=== PATIENT | male | born 1975 | race Caucasian/White ===

== ENCOUNTER 2018-07-04 15:39 | Inpatient (IN) | payer MEDICAID ==
[2018-07-04 16:14] LABS: ADD MAN DIFF? NO
[2018-07-04 16:19] LABS: BASO % 1 % (0-3); EOS # 0.1 x10^3/uL (0.0-0.7); EOS % 1 % (0-3); LYMPH # 2.4 x10^3/uL (1.0-4.8); LYMPH % 30 % (24-48); MEAN CORPUSCULAR HEMOGLOBIN 33 pg (25-35); MEAN CORPUSCULAR HGB CONC 34 g/dL (31-37); MEAN CORPUSCULAR VOLUME 95 fL (79-100); MONO # 0.6 x10^3/uL (0.0-1.1); MONO % 8 % (0-9); NEUT # 4.9 x10^3uL (1.8-7.7); NEUT % 61 % (31-73); PLATELET COUNT 227 x10^3/uL (140-400); RED BLOOD COUNT 4.93 x10^6/uL (4.30-5.70); RED CELL DISTRIBUTION WIDTH 13.8 % (11.5-14.5)
[2018-07-04 16:24] LABS: BILIRUBIN,URINE NEGATIVE (NEG); CLARITY,URINE CLEAR; COLOR,URINE YELLOW; GLUCOSE,URINE NEGATIVE (NEG); NITRITE,URINE NEGATIVE (NEG); PH,URINE 6.5; PROTEIN,URINE NEGATIVE (NEG-TRACE)
[2018-07-04 16:30] LABS: AMPHETAMINE/METHAMPHETAMINE NEG (NEG); BARBITURATES NEG (NEG); BENZODIAZEPINES NEG (NEG); CANNABINOIDS POS (NEG); COCAINE NEG (NEG); ETHANOL, URINE POS (NEG); METHADONE NEG (NEG); OPIATES NEG (NEG); PHENCYCLIDINE NEG (NEG)
[2018-07-04 16:31] LABS: ANION GAP 12 (6-14); BACTERIA,URINE 0 /HPF (0-FEW); BLOOD UREA NITROGEN 10 mg/dL (8-26); BUN/CREATININE RATIO 13 (6-20); CALCIUM 9.2 mg/dL (8.5-10.1); CARBON DIOXIDE 25 mmol/L (21-32); CHLORIDE 103 mmol/L (98-107); CREATININE 0.8 mg/dL (0.7-1.3); GLUCOSE 112 mg/dL (70-99); RBC,URINE 0 /HPF (0-2); SODIUM 140 mmol/L (136-145); WBC,URINE OCC /HPF (0-4)
[2018-07-04] MEDS: MULTIVIT INFUSN,ADULT 4,VIT K 10 ML, THIAMINE 100 MG, FOLIC ACID 1 MG in IV NORMAL SALI... IV ×2 (16:32→20:27)
[2018-07-04] MEDS: ONDANSETRON PF 4 MG/2 ML VIAL. IV (16:32)
[2018-07-04 16:36] LABS: ALBUMIN 4.1 g/dL (3.4-5.0); ALBUMIN/GLOBULIN RATIO 1.3 (1.0-1.7); ALK PHOS 52 U/L (46-116); ALT (SGPT) 42 U/L (16-63); AST (SGOT) 28 U/L (15-37); LIPASE 228 U/L (73-393); TOTAL BILIRUBIN 0.4 mg/dL (0.2-1.0); TOTAL PROTEIN 7.3 g/dL (6.4-8.2)
[2018-07-04 16:38] LABS: ETHANOL 218 mg/dL (0-10); SALIC 4.7 mg/dL (2.8-20.0)
[2018-07-04 16:39] LABS: ACETAMIN < 2 mcg/ml (10-30)
[2018-07-04] MEDS ORDERED: LORazepam 1 MG TABLET PO (17:45)
[2018-07-04] MEDS ORDERED: HALOPERIDOL LACTATE 5 MG/ML VIAL. IVP (17:45)
[2018-07-04] MEDS ORDERED: ACETAMINOPHEN 325 MG TABLET. PO (17:45)
[2018-07-04] MEDS: ENOXAPARIN 40 MG/0.4 ML SYRINGE. SQ (17:45)
[2018-07-04] MEDS ORDERED: diphenhydrAMINE 50 MG/ML VIAL IVP (17:45)
[2018-07-04] MEDS: IV NORMAL SALINE 1000ML BAG 1,000 ML IV (17:45)
[2018-07-04] MEDS ORDERED: cloNIDine HCL 0.1 MG TABLET PO (17:45)
[2018-07-04] MEDS ORDERED: ONDANSETRON PF 4 MG/2 ML VIAL. IV (17:45)
[2018-07-04] MEDS: PANTOPRAZOLE IV PUSH 40 MG VIAL. IVP (20:28)
[2018-07-04] MEDS: NICOTINE 21MG PATCH. TD (21:38)
[2018-07-05] MEDS: MULTIVIT INFUSN,ADULT 4,VIT K 10 ML, THIAMINE 100 MG, FOLIC ACID 1 MG in IV NORMAL SALI... IV (08:49)
[2018-07-05 09:04] LABS: ADD MAN DIFF? NO
[2018-07-05 09:17] LABS: BASO % 1 % (0-3); EOS # 0.1 x10^3/uL (0.0-0.7); EOS % 2 % (0-3); HEMOGLOBIN 15.5 g/dL (13.0-17.5); LYMPH # 1.6 x10^3/uL (1.0-4.8); LYMPH % 25 % (24-48); MEAN CORPUSCULAR HEMOGLOBIN 32 pg (25-35); MEAN CORPUSCULAR HGB CONC 34 g/dL (31-37); MEAN CORPUSCULAR VOLUME 95 fL (79-100); MONO # 0.6 x10^3/uL (0.0-1.1); MONO % 9 % (0-9); NEUT # 4.2 x10^3uL (1.8-7.7); NEUT % 64 % (31-73); PLATELET COUNT 201 x10^3/uL (140-400); RED BLOOD COUNT 4.82 x10^6/uL (4.30-5.70); RED CELL DISTRIBUTION WIDTH 13.9 % (11.5-14.5); WHITE BLOOD COUNT 6.5 x10^3/uL (4.0-11.0)
[2018-07-05 09:21] LABS: ALBUMIN 3.9 g/dL (3.4-5.0); ALBUMIN/GLOBULIN RATIO 1.6 (1.0-1.7); ALK PHOS 51 U/L (46-116); ALT (SGPT) 43 U/L (16-63); ANION GAP 7 (6-14); AST (SGOT) 33 U/L (15-37); BLOOD UREA NITROGEN 11 mg/dL (8-26); BUN/CREATININE RATIO 12 (6-20); CALCIUM 8.3 mg/dL (8.5-10.1); CARBON DIOXIDE 30 mmol/L (21-32); CHLORIDE 103 mmol/L (98-107); CREATININE 0.9 mg/dL (0.7-1.3); GFR 92.5; GLUCOSE 126 mg/dL (70-99); POTASSIUM 4.6 mmol/L (3.5-5.1); SODIUM 140 mmol/L (136-145); TOTAL PROTEIN 6.4 g/dL (6.4-8.2)
[2018-07-05 09:22] LABS: ETHANOL < 10 mg/dL (0-10)
[2018-07-05] MEDS ORDERED: LORazepam 1 MG TABLET PO (11:00)
[2018-07-05] MEDS: chlordiazePOXIDE HCL 25 MG CAPSULE PO (11:22)
[2018-07-05] MEDS ORDERED: NICOTINE POLACRILEX 2MG GUM PACKAGE of 12. BC (12:30)
[2018-07-05] MEDS: PANTOPRAZOLE 40 MG TABLET.DR. PO (13:18)
[2018-07-09] MEDS ORDERED: FOLIC ACID 1 MG TABLET. PO (09:00)
== END 2018-07-05 14:20 | disposition home or self-care (01) | DRG 897 ==
LOC: 6 SOUTH 07-05 08:51 → ER 15:39 → 6 SOUTH 18:24
DX: F10.239 Alcohol dependence with withdrawal, unspecified (principal); F41.9 Anxiety disorder, unspecified; F32.9 Major depressive disorder, single episode, unspecified; F17.210 Nicotine dependence, cigarettes, uncomplicated; F12.10 Cannabis abuse, uncomplicated; E78.5 Hyperlipidemia, unspecified; Z81.1 Family history of alcohol abuse and dependence
CPT/HCPCS: 36415; 80053; 80307; 80329; 81001; 83690; 85025; 96365; 96375; 99285-25; C9113; G0480; G6039; J2060; J2405; J7030

== ENCOUNTER 2018-08-02 15:20 | Emergency (ER) | payer MEDICAID ==
[~2018-08-02] VITALS: Ht 182.9 cm; Wt 70.3 kg
[2018-08-02 15:41] VITALS: BP 113/80
[2018-08-02 16:02] LABS: BARBITURATES NEG (NEG); BENZODIAZEPINES NEG (NEG); CANNABINOIDS POS (NEG); COCAINE NEG (NEG); METHADONE NEG (NEG); OPIATES NEG (NEG); PHENCYCLIDINE NEG (NEG)
[2018-08-02 16:03] LABS: AMPHETAMINE/METHAMPHETAMINE NEG (NEG)
--- NOTE | 2018-08-02 16:03 | PHYS DOC ---
Past Medical History Past Medical History: Alcoholism Past Surgical History: No Surgical History Alcohol Use: Heavy Drug Use: Marijuana Adult General Chief Complaint Chief Complaint: WITHDRAWL HPI HPI Patient is a 42 year old male who presents to the emergency department with a request for detox off alcohol. Patient states he has been a heavy drinker for the last 17 years. Today he has consumed 1 pint of vodka and 9 beers prior to his arrival. He denies any complaints including nausea, vomiting, diarrhea, abdominal pain, or suicidal/homicidal ideations. He denies any pain. Review of Systems Review of Systems Constitutional: Denies fever or chills [] Eyes: Denies change in visual acuity, redness, or eye pain [] HENT: Denies nasal congestion or sore throat [] Respiratory: Denies cough or shortness of breath [] Cardiovascular: No additional information not addressed in HPI [] GI: Denies abdominal pain, nausea, vomiting, bloody stools or diarrhea [] : Denies dysuria or hematuria [] Musculoskeletal: Denies back pain or joint pain [] Integument: Denies rash or skin lesions [] Neurologic: Denies headache, focal weakness or sensory changes [] Endocrine: Denies polyuria or polydipsia [] All other systems were reviewed and found to be within normal limits, except as documented in this note. Current Medications Current Medications Current Medications Medications (Trade) Dose Ordered Sig/Apollo Start Time Stop Time Status Last Admin Dose Admin Lorazepam (Ativan) 1 mg 1X ONCE 08/02/18 16:30 08/02/18 16:31 DC 08/02/18 16:41 1 MG Allergies Allergies Allergies Coded Allergies Type Severity Reaction Last Updated Verified No Known Drug Allergies 07/04/18 No Physical Exam Physical Exam Constitutional: Well developed, well nourished, no acute distress, non-toxic appearance, smells of ETOH [] HENT: Normocephalic, atraumatic, bilateral external ears normal, oropharynx moist, no oral exudates, nose normal. [] Eyes: normal Neck: Normal range of motion, no tenderness, supple, no stridor. [] Cardiovascular:Heart rate regular rhythm, no murmur [] Lungs & Thorax: Bilateral breath sounds clear to auscultation [] Skin: Warm, dry, no erythema, no rash. [] Extremities: No tenderness, no cyanosis, no clubbing, ROM intact, no edema. [] Neurologic: Alert and oriented X 3, normal motor function, normal sensory function, no focal deficits noted. [] Psychologic: Affect normal, judgement normal, mood normal. [] Current Patient Data Vital Signs Vital Signs Date Time Temp Pulse Resp B/P (MAP) Pulse Ox O2 Delivery O2 Flow Rate FiO2 08/02/18 15:41 98.3 81 16 113/80 (91) 99 Room Air 98.3 Lab Values Laboratory Tests Test 08/02/18 15:35 Urine Opiates Screen Neg (NEG) Urine Methadone Screen Neg (NEG) Urine Barbiturates Neg (NEG) Urine Phencyclidine Screen Neg (NEG) Urine Amphetamine/Methamphetamine Neg (NEG) Urine Benzodiazepines Screen Neg (NEG) Urine Cocaine Screen Neg (NEG) Urine Cannabinoids Screen Pos (NEG) Urine Ethyl Alcohol Pos (NEG) EKG EKG [] Radiology/Procedures Radiology/Procedures [] Course & Med Decision Making Course & Med Decision Making Pertinent Labs and Imaging studies reviewed. (See chart for details) 42-year-old male presented to the emergency room with wanting admitted for detox. UDS negative. Marcel from the Psychiatric Assessment Team assessed patient and there are no beds available. Pt is scheduled to meet with his case finisher in 3 days to be admitted to an outpatient program. Will prescribe pt 3 days of chlordiazepoxide. Patient verbalized an understanding of home care, medications, follow-up, and return to ED instructions and was in agreement with the plan of care. [] Dragon Disclaimer Dragon Disclaimer This electronic medical record was generated, in whole or in part, using a voice recognition dictation system. Departure Departure Impression: Primary Impression: Alcohol withdrawal Additional Impression: Alcohol abuse Disposition: 01 HOME, SELF-CARE Condition: STABLE Referrals: NO PCP (PCP) Patient Instructions: Alcohol Withdrawal, [id number] Additional Instructions: Fill the prescription and use it as directed. Follow-up with your case finisher on Sunday as planned to schedule outpatient treatment program. Return to the ER if your symptoms worsen. Scripts Chlordiazepoxide/Clidinium Br (LIBRAX CAPSULE) 1 Each Capsule 50 MG PO BID PRN for ALCOHOL WITHDRAWAL, #6 CAP 0 Refills Prov: LISBETH NARAYANAN [employer]AVA [employer]ELOPER 08/02/18 Problem Qualifiers Primary Impression: Alcohol withdrawal Complication of substance-induced condition: uncomplicated Qualified Codes: F10.230 - Alcohol dependence with withdrawal, uncomplicated LISBETH NARAYANAN [employer]EL[employer] Aug 02, 2018 16:03
[2018-08-02] MEDS ORDERED: LORazepam 1 MG TABLET PO ONE (16:30)
[2018-08-02] MEDS ORDERED: CHLO1CAP PO (17:20)
== END 2018-08-02 17:31 | disposition home or self-care (01) ==
LOC: ER 15:20
DX: F10.239 Alcohol dependence with withdrawal, unspecified (principal); F10.20 Alcohol dependence, uncomplicated; Y90.0 Blood alcohol level of less than 20 mg/100 ml
CPT/HCPCS: 80307; 99283; G0479

== ENCOUNTER 2020-04-24 14:41 | Emergency (ER) | payer SELFPAY ==
[~2020-04-24] VITALS: Ht 182.9 cm; Wt 68.1 kg
[~2020-04-24 14:41] MED LIST: CHLO1CAP PO
[2020-04-24 14:52] VITALS: BP 132/83
[2020-04-24 15:45] LABS: BASO # 0.1 x10^3/uL (0.0-0.2); BASO % 1 % (0-3); EOS # 0.1 x10^3/uL (0.0-0.7); EOS % 1 % (0-3); HEMATOCRIT 48.4 % (39.0-53.0); HEMOGLOBIN 16.9 g/dL (13.0-17.5); LYMPH # 1.7 x10^3/uL (1.0-4.8); LYMPH % 18 % (24-48); MEAN CORPUSCULAR HEMOGLOBIN 33 pg (25-35); MEAN CORPUSCULAR HGB CONC 35 g/dL (31-37); MEAN CORPUSCULAR VOLUME 93 fL (79-100); MONO # 0.9 x10^3/uL (0.0-1.1); MONO % 10 % (0-9); NEUT # 6.7 x10^3/uL (1.8-7.7); NEUT % 71 % (31-73); PLATELET COUNT 228 x10^3/uL (140-400); RED CELL DISTRIBUTION WIDTH 14.2 % (11.5-14.5); WHITE BLOOD COUNT 9.5 x10^3/uL (4.0-11.0)
[2020-04-24 15:53] LABS: CALCIUM 8.5 mg/dL (8.5-10.1); CREATININE 0.9 mg/dL (0.7-1.3); GFR 91.7; POTASSIUM 3.3 mmol/L (3.5-5.1)
[2020-04-24] MEDS ORDERED: CHLO25CA9 PO (17:02)
--- NOTE | 2020-04-24 17:02 | PHYS DOC ---
Past Medical History Past Medical History: Alcoholism Past Surgical History: No Surgical History Smoking Status: Current Every Day Smoker Alcohol Use: Heavy Drug Use: Marijuana General Adult EDM: Chief Complaint: WITHDRAWL HPI: HPI: Patient is a 44 year old male presenting to the ED with a chief complaint of alcohol intoxication. Patient states that he has been drinking alcohol for a long time and wants to stop drinking alcohol. Patient denies suicidal ideation or homicidal ideation. Patient denies nausea, vomiting, abdominal pain. Review of Systems: Review of Systems: Constitutional: Denies fever or chills. [] Eyes: Denies change in visual acuity. [] HENT: Denies nasal congestion or sore throat. [] Respiratory: Denies cough or shortness of breath. [] Cardiovascular: Denies chest pain or edema. [] GI: Denies abdominal pain, nausea, vomiting, bloody stools or diarrhea. [] : Denies dysuria. [] Musculoskeletal: Denies back pain or joint pain. [] Neurologic: Denies headache, focal weakness or sensory changes. [] Heart Score: Risk Factors: Risk Factors: DM, Current or recent (<one month) smoker, HTN, HLP, family history of CAD, obesity. Risk Scores: Score 0 - 3: 2.5% MACE over next 6 weeks - Discharge Home Score 4 - 6: 20.3% MACE over next 6 weeks - Admit for Clinical Observation Score 7 - 10: 72.7% MACE over next 6 weeks - Early Invasive Strategies Allergies: Allergies: Allergies Coded Allergies Type Severity Reaction Last Updated Verified No Known Drug Allergies 07/04/18 No Physical Exam: PE: Constitutional: Well developed, well nourished, no acute distress, non-toxic ermias earance. [] HENT: Normocephalic, atraumatic Eyes: EOMI Neck: Normal range of motion, Supple Cardiovascular:Heart rate regular rhythm Lungs & Thorax: Bilateral breath sounds clear to auscultation [] Abdomen: Bowel sounds normal, soft, no tenderness Extremities: No tenderness, ROM intact Neurologic: Alert and oriented X 3 Current Patient Data: Labs: Laboratory Tests Test 04/24/20 15:30 White Blood Count 9.5 x10^3/uL (4.0-11.0) Red Blood Count 5.20 x10^6/uL (4.30-5.70) Hemoglobin 16.9 g/dL (13.0-17.5) Hematocrit 48.4 % (39.0-53.0) Mean Corpuscular Volume 93 fL (79-100) Mean Corpuscular Hemoglobin 33 pg (25-35) Mean Corpuscular Hemoglobin Concent 35 g/dL (31-37) Red Cell Distribution Width 14.2 % (11.5-14.5) Platelet Count 228 x10^3/uL (140-400) Neutrophils (%) (Auto) 71 % (31-73) Lymphocytes (%) (Auto) 18 % (24-48) L Monocytes (%) (Auto) 10 % (0-9) H Eosinophils (%) (Auto) 1 % (0-3) Basophils (%) (Auto) 1 % (0-3) Neutrophils # (Auto) 6.7 x10^3/uL (1.8-7.7) Lymphocytes # (Auto) 1.7 x10^3/uL (1.0-4.8) Monocytes # (Auto) 0.9 x10^3/uL (0.0-1.1) Eosinophils # (Auto) 0.1 x10^3/uL (0.0-0.7) Basophils # (Auto) 0.1 x10^3/uL (0.0-0.2) Sodium Level 141 mmol/L (136-145) Potassium Level 3.3 mmol/L (3.5-5.1) L Chloride Level 102 mmol/L (98-107) Carbon Dioxide Level 28 mmol/L (21-32) Anion Gap 11 (6-14) Blood Urea Nitrogen 11 mg/dL (8-26) Creatinine 0.9 mg/dL (0.7-1.3) Estimated GFR (Cockcroft-Gault) 91.7 Glucose Level 85 mg/dL (70-99) Calcium Level 8.5 mg/dL (8.5-10.1) Ethyl Alcohol Level 160 mg/dL (0-10) H Laboratory Tests 04/24/20 15:30 Laboratory Tests 04/24/20 15:30 Vital Signs: Vital Signs Date Time Temp Pulse Resp B/P (MAP) Pulse Ox O2 Delivery O2 Flow Rate FiO2 04/24/20 14:52 98.3 80 22 132/83 (99) 97 Room Air 98.3 EKG: EKG: [] Radiology/Procedures: Radiology/Procedures: [] Course & Med Decision Making: Course & Med Decision Making Pertinent Labs reviewed. (See chart for details) Ordered labs, PAT consult . Behavioral therapist came to the ER to evaluate patient. Patient is now to be admitted to a facility where he wants to detox at home. Patient will be discharged home with a prescription for Librium. Discussed results and plan of care with patient. Patient is instructed to follow up with PCP in one to 2 days. Appropriate discharge instructions given to patient to return to the ED or to seek immediate medical evaluation. Patient is instructed to return to the ED if symptoms worsen or if any concerns. Dragon Disclaimer: [employer] Disclaimer: This electronic medical record was generated, in whole or in part, using a voice recognition dictation system. Departure Departure Impression: Primary Impression: Alcohol abuse Additional Impression: Alcohol withdrawal Disposition: 01 HOME, SELF-CARE Condition: STABLE Referrals: NO PCP (PCP) Patient Instructions: Alcohol Intoxication, Alcohol Withdrawal Additional Instructions: Please return to the ED if symptoms worsen or if any concerns. Please follow-up with your PCP in 1 to 2 days. Scripts Chlordiazepoxide Hcl (CHLORDIAZEPOXIDE HCL) 25 Mg Capsule 25 MG PO BID, #20 CAP Prov: YAMILKA AKERS DO 04/24/20 YAMILKA AKERS DO April 24, 2020 17:02
== END 2020-04-24 17:05 | disposition home or self-care (01) ==
LOC: ER 14:41
DX: F10.229 Alcohol dependence with intoxication, unspecified (principal); F17.200 Nicotine dependence, unspecified, uncomplicated; F12.90 Cannabis use, unspecified, uncomplicated; Y90.6 Blood alcohol level of 120-199 mg/100 ml
CPT/HCPCS: 36415; 80048; 85025; 99283; G0480

== ENCOUNTER 2020-08-12 21:48 | Emergency (ER) | payer SELFPAY ==
[~2020-08-12 21:48] MED LIST changes: +CHLO25CA9 PO
[2020-08-13] MEDS ORDERED: CHLO25CA9 PO (02:35)
== END 2020-08-12 22:45 | disposition left against medical advice (07) ==
LOC: ER 21:48
DX: F10.239 Alcohol dependence with withdrawal, unspecified (principal); Y90.9 Presence of alcohol in blood, level not specified; Z53.21 Procedure and treatment not carried out due to patient leaving prior to being seen by health care provider

== ENCOUNTER 2020-08-12 23:56 | Emergency (ER) | payer SELFPAY ==
[~2020-08-12] VITALS: Ht 198.1 cm; Wt 63.0 kg
--- NOTE | 2020-08-13 00:28 | PHYS DOC ---
Past Medical History Past Medical History: Alcoholism Past Surgical History: No Surgical History Smoking Status: Current Every Day Smoker Alcohol Use: Heavy Drug Use: Marijuana General Adult EDM: Chief Complaint: WITHDRAWL HPI: HPI: Patient is a 44 year old male who presents with a chief complaint of alcohol withdrawal requesting detox. Patient last drank about an hour ago but is feeling somewhat tremulous. Patient has a long history of alcoholism and gets tremulous and sweaty when he stops drinking although he has never had a seizure. Patient said he was upset tonight and put his hand through a piece of glass has got superficial lacerations to the right thumb. Patient is also had some nausea vomiting. Patient denies any fevers chills cough shortness of breath or COVID- 19 exposures. Review of Systems: Review of Systems: Constitutional: Denies fever or chills. [] Eyes: Denies change in visual acuity. [] HENT: Denies nasal congestion or sore throat. [] Respiratory: Denies cough or shortness of breath. [] Cardiovascular: Denies chest pain or edema. [] GI: Complains of abdominal pain, nausea, vomiting, but denies bloody stools or diarrhea. [] : Denies dysuria. [] Musculoskeletal: Denies back pain or joint pain. [] Integument: Denies rash. [] Neurologic: Denies headache, focal weakness or sensory changes. [] Endocrine: Denies polyuria or polydipsia. [] Lymphatic: Denies swollen glands. [] Psychiatric: Complains of anxiety. [] Heart Score: Risk Factors: Risk Factors: DM, Current or recent (<one month) smoker, HTN, HLP, family history of CAD, obesity. Risk Scores: Score 0 - 3: 2.5% MACE over next 6 weeks - Discharge Home Score 4 - 6: 20.3% MACE over next 6 weeks - Admit for Clinical Observation Score 7 - 10: 72.7% MACE over next 6 weeks - Early Invasive Strategies Allergies: Allergies: Allergies Coded Allergies Type Severity Reaction Last Updated Verified No Known Drug Allergies 07/04/18 No Physical Exam: PE: Constitutional: Well developed, well nourished, mildly tremulous HENT: Normocephalic, atraumatic, bilateral external ears normal, no trismus, nose normal. [] Eyes: PERRLA, EOMI, conjunctiva normal, no discharge. [] Neck: Normal range of motion, no tenderness, supple, no stridor. [] Cardiovascular:Heart rate regular rhythm, peripheral pulses intact cap refill brisk Lungs & Thorax: Bilateral breath sounds clear, no respiratory distress Abdomen: Bowel sounds normal, soft, mild epigastric tenderness without guarding or rebound, no masses, no pulsatile masses. [] Skin: Right thumb with superficial lacerations Back: No tenderness, no CVA tenderness. [] Extremities: Right thumb with superficial lacerations neurovascular intact dis tally Neurologic: Alert and oriented X 3, normal motor function, normal sensory function, no focal deficits noted. [] Psychologic: Anxious mildly tremulous Current Patient Data: Labs: Laboratory Tests Test 08/13/20 00:35 08/13/20 02:00 White Blood Count 12.7 x10^3/uL Red Blood Count 5.66 x10^6/uL Hemoglobin 17.8 g/dL Hematocrit 52.6 % Mean Corpuscular Volume 93 fL Mean Corpuscular Hemoglobin 32 pg Mean Corpuscular Hemoglobin Concent 34 g/dL Red Cell Distribution Width 14.1 % Platelet Count 270 x10^3/uL Neutrophils (%) (Auto) 80 % Lymphocytes (%) (Auto) 15 % Monocytes (%) (Auto) 5 % Eosinophils (%) (Auto) 0 % Basophils (%) (Auto) 1 % Neutrophils # (Auto) 10.1 x10^3/uL Lymphocytes # (Auto) 1.9 x10^3/uL Monocytes # (Auto) 0.6 x10^3/uL Eosinophils # (Auto) 0.0 x10^3/uL Basophils # (Auto) 0.1 x10^3/uL Sodium Level 140 mmol/L Potassium Level 4.5 mmol/L Chloride Level 106 mmol/L Carbon Dioxide Level 26 mmol/L Anion Gap 8 Blood Urea Nitrogen 11 mg/dL Creatinine 1.0 mg/dL Estimated GFR (Cockcroft-Gault) 81.2 BUN/Creatinine Ratio 11 Glucose Level 99 mg/dL Calcium Level 8.8 mg/dL Magnesium Level 2.1 mg/dL Total Bilirubin 0.3 mg/dL Aspartate Amino Transf (AST/SGOT) 16 U/L Alanine Aminotransferase (ALT/SGPT) 19 U/L Alkaline Phosphatase 58 U/L Total Protein 7.7 g/dL Albumin 4.0 g/dL Albumin/Globulin Ratio 1.1 Lipase 271 U/L Ethyl Alcohol Level 105 mg/dL Urine Collection Type Unknown Urine Color Yellow Urine Clarity Clear Urine pH 5.5 Urine Specific [place] 1.015 Urine Protein Negative mg/dL Urine Glucose (UA) Negative mg/dL Urine Ketones (Stick) Negative mg/dL Urine Blood Negative Urine Nitrite Negative Urine Bilirubin Negative Urine Urobilinogen Dipstick 0.2 mg/dL Urine Leukocyte Esterase Negative Urine RBC 0 /HPF Urine WBC Occ /HPF Urine Squamous Epithelial Cells Few /LPF Urine Bacteria 0 /HPF Urine Mucus Slight /LPF Urine Opiates Screen Neg Urine Methadone Screen Neg Urine Barbiturates Neg Urine Phencyclidine Screen Neg Urine Amphetamine/Methamphetamine Neg Urine Benzodiazepines Screen Neg Urine Cocaine Screen Neg Urine Cannabinoids Screen Pos Urine Ethyl Alcohol Pos Current Medications Medications (Trade) Dose Ordered Sig/Apollo Route PRN Reason Start Time Stop Time Status Last Admin Dose Admin Multivitamins 10 ml/Thiamine HCl 100 mg/Folic Acid 1 mg/Sodium Chloride 1,011.2 ml @ 1,000.088 mls/hr 1X ONCE IV 08/13/20 00:45 08/13/20 01:45 DC 08/13/20 00:47 Lorazepam (Ativan Inj) 2 mg 1X ONCE IVP 08/13/20 00:30 08/13/20 00:32 DC 08/13/20 00:47 Ondansetron HCl (Zofran) 4 mg 1X ONCE IVP 08/13/20 00:30 08/13/20 00:32 DC 08/13/20 00:46 Chlordiazepoxide (Librium) 25 mg 1X ONCE PO 08/13/20 02:45 08/13/20 02:47 DC EKG: EKG: [] Radiology/Procedures: Radiology/Procedures: [][facility] [address] [place], [place] [id number] IMAGING REPORT Signed PATIENT: MARGOT BELTRÁN ACCOUNT: [id number] : 1975 LOCATION: ER AGE: 44 SEX: M EXAM STATUS: REG ER ORD. PHYSICIAN: HARINI PADILLA MD REASON: PUNCHED GLASS PROCEDURE: HAND RIGHT 3V Examination: 3 views of the right hand HISTORY: History of punched glass COMPARISON: None available FINDINGS: The alignment of the metacarpophalangeal , interphalangeal joints grossly appears unremarkable. There is no obvious acute fracture or dislocation identified. IMPRESSION: No acute osseous findings Electronically signed by: Rodney Silverman MD (08/13/2020 1:06 AM) [id number] DICTATED and SIGNED BY: RODNEY SILVERMAN MD DATE: 08/13/20 0106 Course & Med Decision Making: Course & Med Decision Making Pertinent Labs and Imaging studies reviewed. (See chart for details) [] Patient medically stable and cleared for the crisis center. Patient will have a Librium taper written to be filled at the crisis center. No foreign body seen on his hand x-ray. 44-year-old male presents requesting detox from alcohol. Patient has mild tremors on exam and has alcohol level in the low 100s. Patient given Ativan and banana bag and Zofran in the ER. Patient medically stable to go to detox. X- rays were done of the hand as it went through glass earlier this evening. X- rays are negative. Dragon Disclaimer: Dragon Disclaimer: This electronic medical record was generated, in whole or in part, using a voice recognition dictation system. Departure Departure Impression: Primary Impression: Alcohol abuse Additional Impressions: Alcohol withdrawal Laceration of right thumb Disposition: 01 HOME, SELF-CARE (TO CRISIS CENTER) Condition: STABLE Referrals: NO PCP (PCP) Patient Instructions: Alcohol Withdrawal Additional Instructions: EMERGENCY DEPARTMENT GENERAL DISCHARGE INSTRUCTIONS THANK YOU for coming to [facility] Emergency Department (ED) today and trusting us with your care. We trust that you had a positive experience in our Emergency Department. If you wish to speak to the department Management you can contact the department assistant at . YOUR FOLLOW UP INSTRUCTIONS ARE FOLLOWS: Do you have a private doctor? If you do not have a private doctor, please ask for a resource list of physicians or clinics that may be able to assist you with follow up care. The Emergency Physician has interpreted your x-rays. The X-ray specialist will also review them. If there is a change in the findings you will be notified in 48 hours when at all possible. A lab test or lab culture may have been done, your results will be reviewed and you will be notified if you need a change in treatment. ADDITIONAL INSTRUCTIONS AND INFORMATION Your care today has been supervised by a physician who is specially trained in emergency care. Many problems require more than one evaluation for a complete diagnosis and treatment. We recommend that you schedule your follow up appointment as recommended to ensure complete treatment of your illness or injury. If you are unable to obtain follow up care and continue to have a problem, or if your condition worsens we recommend that you return to the ED. We are not able to safely determine your condition over the phone nor are we able to give sound medical advice over the phone. For these safety reasons, if you call for medical advice we will ask you to come to the ED for further evaluation If you have any questions regarding these discharge instructions please call the ED at . SAFETY INFORMATION In the interest of safety, wellness, and injury prevention; we encourage you to wear your seatbelt, if you smoke; quit smoking, and we encourage your family to use protective helmet for bicycling and other sporting events that present an increased risk for head injury. IF YOUR SYMPTOMS WORSEN OR NEW SYMPTOMS DEVELOP, OR YOU HAVE CONCERNS ABOUT YOUR CONDITION; OR IF YOUR CONDITION WORSENS WHILE YOU ARE WAITING FOR YOUR FOLLOW UP APPOINTMENT; EITHER CONTACT YOUR PRIMARY CARE DOCTOR, THE PHYSICIAN WHOSE NAME AND NUMBER YOU WERE GIVEN, OR RETURN TO THE ED IMMEDIATELY. Scripts Chlordiazepoxide Hcl (CHLORDIAZEPOXIDE HCL) 25 Mg Capsule 25 MG PO Q6HRS, #16 CAP 50 MG PO Q 6HOURS X 4 DOSES AND THEN 25 MG PO [id number] X 8 DOSES Prov: HARINI PADILLA MD 08/13/20 Justicifation of Admission Dx: Justifications for Admission: Justification of Admission Dx: N/A HARINI PADILLA MD Aug 13, 2020 00:28
[2020-08-13] MEDS ORDERED: ONDANSETRON PF 4 MG/2 ML VIAL. IVP ONE (00:30)
[2020-08-13] MEDS ORDERED: MULTIVIT INFUSN,ADULT 4,VIT K 10 ML, THIAMINE INJ 100 MG, FOLIC ACID INJ 1 MG in IV NOR... IV ONE (00:45)
[2020-08-13 00:49] LABS: BASO # 0.1 x10^3/uL (0.0-0.2); BASO % 1 % (0-3); EOS % 0 % (0-3); HEMATOCRIT 52.6 % (39.0-53.0); HEMOGLOBIN 17.8 g/dL (13.0-17.5); LYMPH # 1.9 x10^3/uL (1.0-4.8); LYMPH % 15 % (24-48); MEAN CORPUSCULAR HEMOGLOBIN 32 pg (25-35); MEAN CORPUSCULAR HGB CONC 34 g/dL (31-37); MEAN CORPUSCULAR VOLUME 93 fL (79-100); MONO # 0.6 x10^3/uL (0.0-1.1); MONO % 5 % (0-9); NEUT # 10.1 x10^3/uL (1.8-7.7); NEUT % 80 % (31-73); PLATELET COUNT 270 x10^3/uL (140-400); RED BLOOD COUNT 5.66 x10^6/uL (4.30-5.70); RED CELL DISTRIBUTION WIDTH 14.1 % (11.5-14.5); WHITE BLOOD COUNT 12.7 x10^3/uL (4.0-11.0)
[2020-08-13 00:59] LABS: CALCIUM 8.8 mg/dL (8.5-10.1); GFR 81.2; POTASSIUM 4.5 mmol/L (3.5-5.1)
[2020-08-13 01:04] LABS: ALBUMIN/GLOBULIN RATIO 1.1 (1.0-1.7); MAGNESIUM 2.1 mg/dL (1.8-2.4); TOTAL BILIRUBIN 0.3 mg/dL (0.2-1.0); TOTAL PROTEIN 7.7 g/dL (6.4-8.2)
--- NOTE | 2020-08-13 01:09 | RAD ---
Examination: 3 views of the right hand HISTORY: History of punched glass COMPARISON: None available FINDINGS: The alignment of the metacarpophalangeal , interphalangeal joints grossly appears unremarkable. There is no obvious acute fracture or dislocation identified. IMPRESSION: No acute osseous findings Electronically signed by: Rodney Weldon MD (08/13/2020 1:06 AM) [id number]
[2020-08-13 02:11] LABS: BILIRUBIN,URINE NEGATIVE (NEG); CLARITY,URINE CLEAR; COLOR,URINE YELLOW; NITRITE,URINE NEGATIVE (NEG); PH,URINE 5.5 (<5.0-8.0); PROTEIN,URINE NEGATIVE (NEG-TRACE); UROBILINOGEN,URINE 0.2 mg/dL (0.2 mg/dL)
[2020-08-13 02:17] LABS: BARBITURATES NEG (NEG); BENZODIAZEPINES NEG (NEG); CANNABINOIDS POS (NEG); COCAINE NEG (NEG); METHADONE NEG (NEG); OPIATES NEG (NEG); PHENCYCLIDINE NEG (NEG)
[2020-08-13 02:20] LABS: SQUAMOUS EPITHELIAL CELL,UR FEW /LPF
[2020-08-13 02:21] LABS: BACTERIA,URINE 0 /HPF (0-FEW); RBC,URINE 0 /HPF (0-2); WBC,URINE OCC /HPF (0-4)
[2020-08-13 02:22] LABS: AMPHETAMINE/METHAMPHETAMINE NEG (NEG)
[2020-08-13] MEDS ORDERED: CHLO25CA9 PO (02:35)
[2020-08-13] MEDS ORDERED: chlordiazePOXIDE HCL 25 MG CAPSULE PO ONE (02:45)
[2020-08-13 03:20] VITALS: BP 117/63
== END 2020-08-13 04:00 | disposition home or self-care (01) ==
LOC: ER 23:56
DX: S61.011A Laceration without foreign body of right thumb without damage to nail, initial encounter (principal); F10.239 Alcohol dependence with withdrawal, unspecified; Y90.9 Presence of alcohol in blood, level not specified; R10.13 Epigastric pain; R11.2 Nausea with vomiting, unspecified; F17.200 Nicotine dependence, unspecified, uncomplicated; W25.XXXA Contact with sharp glass, initial encounter; Y93.89 Activity, other specified; Y92.89 Other specified places as the place of occurrence of the external cause; Y99.8 Other external cause status
CPT/HCPCS: 36415; 73130; 80053; 80307; 81001; 83690; 83735; 85025; 96365; 96375; 99285; G0480; J2060; J2405; J3411; J3490; J7030